=== PATIENT | female | born 1960 | race Caucasian/White ===

== ENCOUNTER → 2016-08-07 | Outpatient (REF) | payer BC | LOC: M LAB REF 13:11 | PROVIDERS: ATTEND Obstetrics & Gynecology | DX: N32.81 Overactive bladder (principal); N81.11 Cystocele, midline; N39.46 Mixed incontinence ==

== ENCOUNTER → 2016-10-22 | Day surgery (SDC) | payer BC ==
[~2016-10-22] VITALS: Ht 170.2 cm; Wt 74.8 kg
[~2016-10-22] MED LIST: GABA-282 PO; IBUPROFEN 600 MG TAB PO PRN; LIDOCAINE 2% INJ 100 MG/5 ML SDV (FOR ANES.) As Ordered ONE; LIDOCAINE 2% JELLY 30 ML As Ordered ONE; LR 1,000 ML IV ONE; LR 1,000 ML IV SCH; MEPERIDINE INJ 25 MG/ML VIAL (J2175) IV PRN; MIDAZOLAM INJ 2 MG/2 ML VIAL (J2250) As Ordered ONE; NORCO, ANEXSIA 5/325MG TABLET (HYDROcodone/ACETAMINOPHEN) PO PRN; OMEP20CA3 PO; ONDANSETRON 4MG/2ML VIAL (J2405) As Ordered ONE; ONDANSETRON 4MG/2ML VIAL (J2405) IV PRN; PERCOCET 5MG/325MG TAB PO PRN; PROPOFOL 200 MG/20 ML VIAL As Ordered ONE; ROCURONIUM BROMIDE 50 MG/5 ML VIAL/SYRINGE As Ordered ONE; VASOPRESSIN INJ 20 UNITS/ML VIAL As Ordered ONE; dexameTHASONE 4 MG/ML 1ML VIAL (J1100) As Ordered ONE; fentaNYL 100 MCG/2 ML INJECTION (J3010) As Ordered ONE; fentaNYL 100 MCG/2 ML INJECTION (J3010) IV PRN
[2016-10-22 11:00] VITALS: BP 129/62
--- NOTE | 2016-10-23 06:32 | RO ---
DATE OF PROCEDURE: 10/22/2016 PREOPERATIVE DIAGNOSIS: Stress urinary incontinence with urethral hypermobility. POSTOPERATIVE DIAGNOSIS: Stress urinary incontinence with urethral hypermobility. PROCEDURE: Mini mid urethral sling using Solyx and cystourethroscopy. SURGEON: Dr. Dionna Jaimes SPEECH LANGUAGE THERAPIST: None. ANESTHESIA: LMA. DESCRIPTION OF PROCEDURE: Jesika was brought to the operating room where sufficient LMA anesthesia was induced, and she was prepped, draped and positioned in the usual sterile fashion. With the bladder emptied and the anterior aspect of the vagina visualized, an Allis clamp was used to elevate the anterior vaginal wall. It was injected with diluted vasopressin and a vertical midline incision approximately 1-1/2 cm was made, approximately 1 cm cephalad from the urethral meatus. The Strully scissors were used to dissect out the tracts for the course of the trocar for the mid urethral sling and then starting on the patient's right side, the mid urethral sling was placed, anchoring as is typical on first the right side, then the left. We then did cystourethroscopy and confirmed a normal internal bladder contour and mucosa. There were normal jets of urine from each ureter, and there was no evidence, especially near the bladder neck as would typical with this approach of any injury or disruption to the bladder or the urethra from the mid urethral sling. Palpation along the course of the sling confirmed this as well. The vaginal wound was then closed, vaginal packing placed to be removed prior to discharge and the procedure then ended. Estimated blood loss for the procedure was maybe 10 mL. Fluid replacement was crystalloid. Complications: None. Condition and Disposition: Jesika tolerated the procedure well and was recovering in the recovery room in good condition.
== END | disposition home or self-care (01) ==
LOC: M SDC 06:10
PROVIDERS: ATTEND Obstetrics & Gynecology
DX: N39.3 Stress incontinence (female) (male) (principal); N36.41 Hypermobility of urethra; G43.909 Migraine, unspecified, not intractable, without status migrainosus; K21.9 Gastro-esophageal reflux disease without esophagitis; M12.9 Arthropathy, unspecified; Z79.899 Other long term (current) drug therapy; Z78.0 Asymptomatic menopausal state; Z98.51 Tubal ligation status; Z98.84 Bariatric surgery status
CPT/HCPCS: 57288; C1771; J0690; J1100; J2250; J2405; J3010